=== PATIENT | female | born 1980 | race Caucasian/White ===

== ENCOUNTER 2017-09-25 14:11 | Emergency (ER) | payer OTHER ==
[~2017-09-25 14:11] MED LIST: Sodium Chloride 0.9% 1,000 ML BAG ONE; Sodium Chloride 0.9% 100 ML BAG ONE
[2017-09-25] MEDS ORDERED: Promethazine HCl 25 MG/ML VIAL ONE (15:39)
[2017-09-25] MEDS ORDERED: diphenhydrAMINE 50 MG/ML VIAL ONE (15:39)
[2017-09-25] MEDS ORDERED: Ketorolac Tromethamine 30 MG/ML VIAL ONE (15:39)
[2017-09-25] MEDS ORDERED: Acetaminophen 500 MG TAB ONE (17:16)
== END 2017-09-25 17:40 | disposition home or self-care (01) ==
LOC: MADERS 14:11
DX: G43.909 Migraine, unspecified, not intractable, without status migrainosus (principal); F41.9 Anxiety disorder, unspecified; F17.210 Nicotine dependence, cigarettes, uncomplicated; Z79.899 Other long term (current) drug therapy
CPT/HCPCS: 96361; 96365; 96375; 99406; J1200; J1885; J2550; J7050

== ENCOUNTER 2018-02-13 14:31 | Emergency (ER) | payer OTHER, SELFPAY ==
[2018-02-13] MEDS ORDERED: Metoclopramide HCl 10 MG/2 ML VIAL ONE (14:54)
[2018-02-13] MEDS ORDERED: Sodium Chloride 0.9% 1,000 ML ONE (14:54)
[2018-02-13] MEDS ORDERED: SUMAtriptan Succinate 6 MG/0.5 ML VIAL ONE (14:54)
[2018-02-13] MEDS ORDERED: Ketorolac Tromethamine 30 MG/ML VIAL ONE (14:54)
[2018-02-13] MEDS ORDERED: Diazepam 5 MG TAB ONE (15:22)
[2018-02-13] MEDS ORDERED: Bupivacaine PF 0.5% 30 ML VIAL ONE (16:13)
== END 2018-02-13 17:05 | disposition home or self-care (01) ==
LOC: MADERS 14:31
DX: G43.909 Migraine, unspecified, not intractable, without status migrainosus (principal); F41.9 Anxiety disorder, unspecified; F17.210 Nicotine dependence, cigarettes, uncomplicated; Z79.899 Other long term (current) drug therapy
CPT/HCPCS: 96361; 96372; 96374; 96375; J1885; J2765; J3030; J7050; S0020

== ENCOUNTER 2018-02-19 19:00 | Emergency (ER) | payer MEDICARE, SELFPAY ==
[~2018-02-19 19:00] MED LIST changes: +ISOVUE-370 76%-LOCM 1 ML ONE; -Sodium Chloride 0.9% 1,000 ML BAG ONE; -Sodium Chloride 0.9% 100 ML BAG ONE
--- NOTE | 2018-02-19 21:00 | CT ---
CT ORBITS WITH CONTRAST 02/19/18 HISTORY: Left orbital cellulitis. FINDINGS: No evidence of intraorbital edema, gas, hematoma, or abscess. Bilateral extraocular muscles are symme trical and normal in size. There is moderate mucosal thickening throughout all ethmoid air cells. Th ere is mild to moderate mucosal thickening in the sphenoid sinus. Multiple polypoid densities consist ent with small mucous retention cysts in the right maxillary sinus. No air fluid levels. Frontal sinu ses are nonpneumatized. No periostitis or destructive osseous lesion involving the orbital kuhn. IMPRESSION: 1. No orbital abnormality identified. 2. Paranasal sinus mucosal disease, especially of the ethmoids. POS: [facility]
== END 2018-02-19 21:07 | disposition home or self-care (01) ==
LOC: MADERS 19:00
DX: L03.213 Periorbital cellulitis (principal); J01.90 Acute sinusitis, unspecified; G43.909 Migraine, unspecified, not intractable, without status migrainosus; F41.9 Anxiety disorder, unspecified; F17.210 Nicotine dependence, cigarettes, uncomplicated; Z79.899 Other long term (current) drug therapy
CPT/HCPCS: 70481

== ENCOUNTER 2019-05-30 16:25 | Emergency (ER) | payer MEDICARE, MEDICAID ==
[2019-05-30] MEDS ORDERED: predniSONE 20 MG TAB ONE (17:12)
== END 2019-05-30 17:15 | disposition home or self-care (01) ==
LOC: MADERS 16:25
DX: L23.7 Allergic contact dermatitis due to plants, except food (principal); G40.909 Epilepsy, unspecified, not intractable, without status epilepticus; F41.9 Anxiety disorder, unspecified; F17.210 Nicotine dependence, cigarettes, uncomplicated; Z79.899 Other long term (current) drug therapy
CPT/HCPCS: 99283; J7512

== ENCOUNTER 2021-01-13 10:03 | Emergency (ER) | payer MEDICARE, MEDICAID | END 2021-01-13 11:55 | disposition home or self-care (01) | LOC: MADERS 10:03 | DX: S80.12XA Contusion of left lower leg, initial encounter (principal); G40.909 Epilepsy, unspecified, not intractable, without status epilepticus; Z87.891 Personal history of nicotine dependence; Z79.899 Other long term (current) drug therapy; W18.30XA Fall on same level, unspecified, initial encounter; Y92.009 Unspecified place in unspecified non-institutional (private) residence as the place of occurrence of the external cause ==

== ENCOUNTER 2022-02-01 08:39 | Emergency (ER) | payer MEDICARE, MEDICAID | END 2022-02-01 09:21 | disposition home or self-care (01) | LOC: MADERS 08:39 | DX: L03.213 Periorbital cellulitis (principal); Z87.891 Personal history of nicotine dependence | CPT/HCPCS: 99283 ==

== ENCOUNTER 2022-02-20 08:56 | Emergency (ER) | payer MEDICARE, MEDICAID ==
[~2022-02-20 08:56] MED LIST changes: -ISOVUE-370 76%-LOCM 1 ML ONE; +Iopamidol 370 76% 100 ML VIAL ONE; +Sodium Chloride 0.9% 1,000 ML BAG ONE
[2022-02-20 09:39] LABS: Bilirubin Negative (Negative); Blood, Urine Moderate (Negative); Clarity Clear (Clear); Glucose, Urine (Dipstick) Negative (Negative); Ketone, Urine Negative (Negative); Leukocyte Negative (Negative); Nitrite Negative (Negative); Protein, Urine (Dipstick) Negative (Neg-Trace); Specific Gravity, Urine 1.025 (1.005-1.030); Urobilinogen 0.2 mg/dL (Less than 2)
[2022-02-20] MEDS ORDERED: Morphine 4 MG/ML VIAL ONE (09:43)
[2022-02-20 09:58] LABS: WBC/HPF 0-3 HPF (0-3)
[2022-02-20 09:59] LABS: Bacteria/HPF Rare-Few HPF (None Seen)
[2022-02-20 10:22] LABS: BHCG - Serum Negative (NEGATIVE); Pregs Control Bar Appear? YES (CONTROL BAR)
[2022-02-20 10:23] LABS: Pregs Control Background? CLEAR/WHITE (CLR/WHITE)
[2022-02-20] MEDS ORDERED: HYDROmorphone 0.5 MG/0.5 ML SYRINGE ONE ×6 (10:25→21:33)
[2022-02-20 10:30] LABS: ALT (SGPT) 13 U/L (8-55); AST (SGOT) 16 U/L (5-34); Albumin 4.3 g/dL (3.5-5.0); Alkaline Phosphatase 55 U/L (40-110); Anion Gap 13 mmol/L (10-20); BUN (Urea Nitrogen) 9 mg/dL (7.0-18.7); Bilirubin, Total 0.5 mg/dL (0.2-1.2); Calc. Creatinine Clearance 0 mL/min (70-130); Calcium 9.6 mg/dL (7.8-10.44); Carbon Dioxide 24 mmol/L (22-29); Chloride 103 mmol/L (98-107); Estimated GFR 108; Globulin 2.9 g/dL (2.4-3.5); Glucose 97 mg/dL (70-105); Potassium 3.3 mmol/L (3.5-5.1); Protein, Total 7.2 g/dL (6.0-8.3); Sodium 137 mmol/L (136-145)
[2022-02-20 10:31] LABS: CRP (Inflammatory) 5.99 mg/dL (= or < 0.5)
[2022-02-20 10:32] LABS: #Basophils 0.1 thou/uL (0.0-0.2); #Eosinphils 0.2 thou/uL (0.0-0.7); #Lymphocytes 0.7 thou/uL (1.20-3.40); #Monocytes 1.2 thou/uL (0.11-0.59); #Neutrophils 14.1 thou/uL (1.40-6.50); %Basophils 0.6 % (0.0-1.0); %Lymphocytes 4.5 % (21.0-51.0); %Monocytes 7.4 % (0.0-10.0); %Neutrophils 86.5 % (42.0-75.0); Hemoglobin 13.3 g/dL (12.0-16.0); Mean Corpuscular HGB CONC 33.4 g/dL (32.0-36.0); Mean Corpuscular Hemoglobin 31.7 pg (27.0-31.0); Mean Platelet Volume 10.6 fL (7.4-10.4); Platelet Count 186 10x3/uL (130-400); RBC Distribution Width 12.6 % (11.5-14.5); White Blood Cell (WBC) Count 16.3 10x3/uL (4.8-10.8)
[2022-02-20] MEDS ORDERED: Diazepam 10 MG/2 ML SYRINGE ONE (12:39)
[2022-02-20] MEDS ORDERED: Sodium Chloride 0.45% 1,000 ML ONE (12:39)
[2022-02-20] MEDS ORDERED: metroNIDAZOLE 500 MG/100 ML BAG ONE ×2 (13:26→20:29)
[2022-02-20] MEDS ORDERED: Sodium Chloride 0.9% 1,000 ML ONE (16:48)
[2022-02-20] MEDS ORDERED: Ondansetron PF 4 MG/2 ML Vial ONE (16:48)
[2022-02-20] MEDS ORDERED: Promethazine HCl 25 MG/ML VIAL ONE (18:42)
[2022-02-21] MEDS ORDERED: HYDROmorphone 0.5 MG/0.5 ML SYRINGE ONE ×2 (01:18→05:57)
[2022-02-21] MEDS ORDERED: metroNIDAZOLE 500 MG/100 ML BAG ONE ×2 (04:12→11:57)
[2022-02-21 05:36] LABS: #Eosinphils 0.4 thou/uL (0.0-0.7); #Lymphocytes 1.7 thou/uL (1.20-3.40); #Monocytes 0.9 thou/uL (0.11-0.59); #Neutrophils 4.4 thou/uL (1.40-6.50); %Basophils 0.6 % (0.0-1.0); %Eosinophils 5.4 % (0.0-10.0); %Lymphocytes 22.8 % (21.0-51.0); %Monocytes 11.6 % (0.0-10.0); %Neutrophils 59.7 % (42.0-75.0); Hemoglobin 11.6 g/dL (12.0-16.0); Mean Corpuscular HGB CONC 33.7 g/dL (32.0-36.0); Mean Corpuscular Hemoglobin 32.1 pg (27.0-31.0); Mean Corpuscular Volume 95.2 fl (78.0-98.0); Mean Platelet Volume 10.2 fL (7.4-10.4); Platelet Count 149 10x3/uL (130-400); RBC Distribution Width 12.3 % (11.5-14.5); Red Blood Cell (RBC) Count 3.63 mill/uL (4.20-5.40); White Blood Cell (WBC) Count 7.4 10x3/uL (4.8-10.8)
[2022-02-21 05:59] LABS: ALT (SGPT) 11 U/L (8-55); AST (SGOT) 20 U/L (5-34); Albumin 3.5 g/dL (3.5-5.0); Alkaline Phosphatase 41 U/L (40-110); Anion Gap 13 mmol/L (10-20); BUN (Urea Nitrogen) 4 mg/dL (7.0-18.7); Bilirubin, Total 0.5 mg/dL (0.2-1.2); Calc. Creatinine Clearance 0 mL/min (70-130); Calcium 8.3 mg/dL (7.8-10.44); Carbon Dioxide 21 mmol/L (22-29); Chloride 109 mmol/L (98-107); Estimated GFR 115; Globulin 2.4 g/dL (2.4-3.5); Glucose 84 mg/dL (70-105); Potassium 2.9 mmol/L (3.5-5.1); Protein, Total 5.9 g/dL (6.0-8.3); Sodium 140 mmol/L (136-145)
[2022-02-21] MEDS ORDERED: Potassium Chloride 20 MEQ TAB ONE (06:15)
[2022-02-21] MEDS ORDERED: Morphine 4 MG/ML VIAL ONE (10:35)
[2022-02-21] MEDS ORDERED: Sodium Chloride 0.45% 1,000 ML ONE (10:35)
[2022-02-21 10:38] LABS: ALT (SGPT) 12 U/L (8-55); AST (SGOT) 22 U/L (5-34); Albumin 3.7 g/dL (3.5-5.0); Alkaline Phosphatase 45 U/L (40-110); Anion Gap 13 mmol/L (10-20); BUN (Urea Nitrogen) 4 mg/dL (7.0-18.7); Bilirubin, Total 0.5 mg/dL (0.2-1.2); Calc. Creatinine Clearance 0 mL/min (70-130); Calcium 8.6 mg/dL (7.8-10.44); Carbon Dioxide 22 mmol/L (22-29); Chloride 110 mmol/L (98-107); Estimated GFR 113; Globulin 2.6 g/dL (2.4-3.5); Glucose 77 mg/dL (70-105); Magnesium 1.9 mg/dL (1.6-2.6); Potassium 3.6 mmol/L (3.5-5.1); Protein, Total 6.3 g/dL (6.0-8.3); Sodium 141 mmol/L (136-145)
[2022-02-21] MEDS ORDERED: Ondansetron PF 4 MG/2 ML Vial ONE (12:33)
== END 2022-02-21 12:46 | disposition short-term general hospital (02) ==
LOC: MADERS 08:56
DX: K52.9 Noninfective gastroenteritis and colitis, unspecified (principal); E87.6 Hypokalemia; A41.9 Sepsis, unspecified organism; Z87.891 Personal history of nicotine dependence
CPT/HCPCS: 74177; 80053; 81003; 81015; 82274; 82550; 83605; 83690; 83735; 84703; 85025; 86140; 87040; 87324; 87449; 96361; 96365; 96366; 96367; 96368; 96372; 96375; 96376; J1170; J1956; J2270; J2405; J2550; J3360; J7050; Q9967